=== PATIENT | male | born 1955 | race Caucasian/White ===

== ENCOUNTER 2022-07-17 07:45 | Outpatient (CLI) | payer MEDICARE, OTHER ==
--- NOTE | 2022-07-17 12:39 | Ultrasound Report ---
PROCEDURE: Aorta Screening INDICATIONS: HIST OF SMOKING TECHNIQUE: Real time scanning was performed of the aorta and iliac arteries, with image documentatio n. COMPARISON: None FINDINGS: Aorta: Proximal aortic diameter measures 2.3 x 2.3 cm. Mid-aorta measures 1.9 x 1.9 cm. Distal aor tic diameter is 1.9 x 2.1 cm. Mild atherosclerotic plaque noted in the distal aorta Iliac arteries: Right common iliac artery measures 1.2 x 1.0 cm. Left common iliac artery measures 1.1 x 0.9 cm. IMPRESSION: 1. Atherosclerotic plaque results in mild distal aortic ectasia without evidence of aneurysm. Reviewed by: Bridger Gómez MD on 07/17/2022 11:38 AM [facility] Approved by: Bridger Gómez MD on 07/17/2022 11:38 AM [facility] Station ID: [id number]
== END 2022-07-17 07:46 | disposition home or self-care (01) ==
LOC: DI 07:45
PROVIDERS: ATTEND Nurse Practitioner Family
DX: Z13.6 Encounter for screening for cardiovascular disorders (principal); Z87.891 Personal history of nicotine dependence; I70.0 Atherosclerosis of aorta; I77.819 Aortic ectasia, unspecified site

== ENCOUNTER 2023-01-08 10:01 | Outpatient (CLI) | payer MEDICARE, OTHER ==
--- NOTE | 2023-01-08 16:33 | XRAY Report ---
PROCEDURE: Chest 2 View X-Ray INDICATIONS: PNEUMONIA TECHNIQUE: 2 views of the chest were acquired. COMPARISON: None. FINDINGS: Surgical changes and devices: None. Lungs and pleura: No pleural effusions or pneumothorax. Lungs appear hyperinflated, finding that can be seen in the setting of COPD. No suspicious focal airspace opacity identified. Mediastinum: Heart size is normal. Possible small hiatal hernia. Bones and chest wall: No suspicious bony lesions. Overlying soft tissues appear unremarkable. IMPRESSION: No acute cardiopulmonary process. Reviewed by: Redd Neri MD on 01/08/2023 4:32 PM PDT Approved by: Redd Neri MD on 01/08/2023 4:32 PM PDT Station ID: [id number]
== END 2023-01-08 10:02 | disposition home or self-care (01) ==
LOC: DI.S 10:01
PROVIDERS: ATTEND Family Medicine
DX: J18.9 Pneumonia, unspecified organism (principal)

== ENCOUNTER 2024-02-11 14:52 | Outpatient (CLI) | payer MEDICARE, OTHER ==
--- NOTE | 2024-02-11 19:46 | XRAY Report ---
PROCEDURE: Chest 2V INDICATIONS: WHEEZING TECHNIQUE: 2 views of the chest were acquired. COMPARISON: Chest radiograph on January 08, 2023. FINDINGS: Surgical changes and devices: None. Lungs and pleura: No pleural effusions or pneumothorax. Mild diffuse interstitial prominence. Hypere xpansion of the lungs with flattening of the diaphragm suggestive of COPD. Mediastinum: Mediastinal contours appear normal. Heart size is normal. Bones and chest wall: No suspicious bony lesions. Overlying soft tissues appear unremarkable. Mild multilevel degenerative changes of the spine. IMPRESSION: Mild diffuse interstitial prominence which may reflect early pulmonary edema. Reviewed by: Rupert Short MD on 02/11/2024 7:45 PM PDT Approved by: Rupert Short MD on 02/11/2024 7:45 PM PDT Station ID: [id number]
== END 2024-02-11 14:53 | disposition home or self-care (01) ==
LOC: DI.S 14:52
PROVIDERS: ATTEND Registered Nurse
DX: R06.2 Wheezing (principal)

== ENCOUNTER 2024-02-26 07:53 | Outpatient (CLI) | payer MEDICARE, OTHER ==
[2024-02-26] MEDS: ALBUTEROL 1 PUFF INH STA (12:07)
== END 2024-02-26 07:54 | disposition home or self-care (01) ==
LOC: RT 07:53
PROVIDERS: ATTEND Registered Nurse
DX: R06.2 Wheezing (principal)
CPT/HCPCS: 94060; 94727; 94729